=== PATIENT | female | born 1945 | race Caucasian/White ===

== ENCOUNTER 2019-05-15 04:26 | Inpatient (IN) ==
--- NOTE | 2019-05-10 17:47 | EKG Report ---
Test Performed on : 05/10/2019 5:22:59 PM Test Reason : PAT Blood Pressure : / mmHG Vent. Rate : 069 BPM Atrial Rate : 069 BPM P-R Int : 132 ms QRS Dur : 086 ms QT Int : 422 ms P-R-T Axes : 059 024 050 degrees QTc Int : 452 ms Normal sinus rhythm. Normal ECG When compared with ECG of 19-JUN-2013 16:54, No significant change was found U waves present, consider hypokalemia Confirmed by Jean-Claude SORIANO, Herb Nieves ([id number]) on 05/11/2019 8:31:15 AM
[2019-05-10 17:52] LABS: URINE SOURCE CLEAN CATCH
[2019-05-10 18:16] LABS: BASO# 0.05 X1000 (0.0-0.2); BASO% 0.5 % (0.0-0.8); EOS# 0.29 X1000 (0.0-0.7); EOS% 2.8 % (0.0-10.0); HEMATOCRIT 37.7 % (37.0-47.0); HEMOGLOBIN 11.7 g/dL (12.0-16.0); IMM GRAN# 0.05 X1000 (0.0-0.04); IMM GRAN% 0.5 % (0.0-0.5); LYMPH# 0.86 X1000 (1.2-3.4); LYMPH% 8.4 % (20.5-51.1); MCH 29.1 PG (27-31); MCV 93.8 FL (81-99); MONO% 6.8 % (1.7-9.3); MPV 10.4 FL (7.4-10.4); NEUT# 8.34 X1000 (1.4-6.5); PLT 217 X1000 (130-400); RBC 4.02 XMIL (4.2-5.4); RDW 16.3 % (11.5-14.5); WBC 10.29 X1000 (4.8-10.8)
[2019-05-10 18:17] LABS: HEMOGLOBIN A1C 5.6 % (4.8-6.0)
[2019-05-10 18:19] LABS: BILIRUBIN URINE NEGATIVE (NEGATIVE); BLOOD URINE NEGATIVE (NEGATIVE); COLOR YELLOW; GLUCOSE URINE NEGATIVE (NEGATIVE); KETONE URINE TRACE mg/dL (NEGATIVE); LEUKOCYTES URINE LARGE (NEGATIVE); NITRITE URINE NEGATIVE (NEGATIVE); PH URINE 5.5; PROTEIN URINE 50 mg/dL (NEGATIVE); SP GRAVITY URINE 1.035; TURBIDITY URINE HAZY (CLEAR); UROBILINOGEN URINE 3 mg/dL (NORMAL)
[2019-05-10 18:21] LABS: PROTIME 13.3 Seconds (11.0-16.0)
[2019-05-10 18:22] LABS: PTT 30.8 Seconds (22.3-41.8)
[2019-05-10 18:25] LABS: UR EPITHELIAL CELLS >10 /HPF (<10); URINE BACTERIA NEGATIVE /HPF; URINE WBC TNTC /HPF (<10)
[2019-05-10 18:26] LABS: ALBUMIN 4.4 g/dL (3.5-5.0); CALCIUM 9.2 mg/dL (8.8-10.2); POTASSIUM 3.5 mmol/L (3.5-5.1)
[2019-05-10 18:37] LABS: URINE CASTS NONE SEEN
[2019-05-15] MEDS ORDERED: OFIRMEV 1000 MG/ISOTONIC SOLN 1,000 MG/100 ML BOTTLE ONE (07:07)
[2019-05-15] MEDS ORDERED: DECADRON ONE ×2 (07:07→09:12)
[2019-05-15] MEDS ORDERED: DIPRIVAN 1% ONE ×2 (07:07→09:57)
[2019-05-15] MEDS ORDERED: ROBINUL ONE ×2 (07:07→09:06)
[2019-05-15] MEDS ORDERED: TORADOL ONE ×2 (07:07→07:48)
[2019-05-15] MEDS ORDERED: XYLOCAINE-MPF 2% ONE ×2 (07:07→09:58)
[2019-05-15] MEDS ORDERED: VERSED ONE (07:18)
[2019-05-15] MEDS ORDERED: COLACE ONE (07:19)
[2019-05-15] MEDS ORDERED: REGLAN ONE (07:19)
[2019-05-15] MEDS ORDERED: PEPCID ONE (07:19)
[2019-05-15] MEDS ORDERED: LYRICA ONE (07:20)
[2019-05-15] MEDS ORDERED: CELEBREX ONE (07:20)
[2019-05-15] MEDS ORDERED: VALIUM ONE (07:20)
[2019-05-15] MEDS ORDERED: LR 1,000 ML ONE (07:21)
[2019-05-15] MEDS ORDERED: VANCOMYCIN 1 GM/NS 1 GM/250 ML IVPB ONE (07:21)
[2019-05-15] MEDS ORDERED: FENTANYL ONE (07:22)
[2019-05-15] MEDS ORDERED: EXPAREL 1.3% ONE (07:48)
[2019-05-15] MEDS ORDERED: CYKLOKAPRON 1,000 MG/NS 1,000 MG/100 ML IVPB ONE (07:48)
[2019-05-15] MEDS ORDERED: DURAMORPH ONE (07:48)
[2019-05-15] MEDS ORDERED: SODIUM CHLORIDE 0.9% ONE (07:48)
[2019-05-15] MEDS ORDERED: MARCAINE 0.25% PF ONE (07:48)
[2019-05-15] MEDS ORDERED: NEOSPORIN G.U. IRRIGANT ONE (07:50)
[2019-05-15] MEDS ORDERED: EPHEDRINE ONE (09:57)
[2019-05-15 10:56] LABS: URINE SOURCE CATH
[2019-05-15 11:06] LABS: BILIRUBIN URINE NEGATIVE (NEGATIVE); BLOOD URINE NEGATIVE (NEGATIVE); COLOR YELLOW; GLUCOSE URINE NEGATIVE (NEGATIVE); KETONE URINE NEGATIVE (NEGATIVE); LEUKOCYTES URINE NEGATIVE (NEGATIVE); NITRITE URINE NEGATIVE (NEGATIVE); PROTEIN URINE NEGATIVE (NEGATIVE); SP GRAVITY URINE 1.012; TURBIDITY URINE CLEAR (CLEAR); UR EPITHELIAL CELLS <10 /HPF (<10); URINE BACTERIA NEGATIVE /HPF; URINE RBC <10 /HPF (<10); URINE WBC <10 /HPF (<10); UROBILINOGEN URINE NORMAL (NORMAL)
[2019-05-15] MEDS ORDERED: NS 1,000 ML ONE (11:49)
[2019-05-15] MEDS ORDERED: MORPHINE IV PRN ×3 (12:45)
[2019-05-15] MEDS ORDERED: OXY IR PO PRN (12:45)
[2019-05-15] MEDS ORDERED: MILK OF MAGNESIA PO PRN (12:45)
[2019-05-15] MEDS ORDERED: ZOFRAN IV PRN (12:45)
[2019-05-15] MEDS ORDERED: ZOFRAN ODT PO PRN (12:45)
[2019-05-15] MEDS: TYLENOL PO SCH ×2 (14:07→18:30)
[2019-05-15] MEDS: ULTRAM PO SCH ×2 (14:07→18:30)
[2019-05-15] MEDS: NS 1,000 ML IV SCH (14:07)
[2019-05-15] MEDS ORDERED: CYKLOKAPRON 1,000 MG in NS 100 ML IV ONE (15:15)
[2019-05-15] MEDS ORDERED: RESTORIL PO PRN (16:26)
--- NOTE | 2019-05-15 16:38 | OPERATIVE NOTE ---
PROCEDURE DATE: 05/15/2019 PREOPERATIVE DIAGNOSIS: Left hip degenerative joint disease. POSTOPERATIVE DIAGNOSIS: Left hip degenerative joint disease. PROCEDURE: Left anterior total hip arthroplasty using a [facility] size 11 high offset stem with a neutral neck length, 36 mm ceramic head, a 52 mm hemispherical shell with two 6.5 cancellous screws of 30 and 40 mm, and a 36 mm inside diameter acetabular liner. ANESTHESIA: Spinal. SURGEON: Aaron Pedraza MD PRODUCT SAFETY TESTER: DAYNE Perkins COMPLICATIONS: None. BLOOD LOSS: Minimal. DRAINS: Hemovac x1. DESCRIPTION OF PROCEDURE: Patient was brought to the operative suite and placed in the supine position. After successful administration of general anesthesia, the patient was placed on the OSI table in the usual position for left hip. The left hip was then prepped and draped in the usual sterile fashion. A longitudinal incision was made beginning 2.5 cm distal and 2.5 cm lateral to the anterior superior iliac spine, extended distally and slightly laterally 8 cm. This was dissected sharply through skin and subcutaneous tissue down to the tensor fascia. Tensor fascia was incised protecting the superficial cutaneous nerve and then dissected bluntly down to deep tensor fascia. The deep tensor fascia was incised and circumflex vessels electrocauterized exposing the anterior capsule. A T capsulotomy was performed exposing the anterior neck. The neck cut was then made with an oscillating saw. The femoral head was removed with the power corkscrew. The labrum was resected. The acetabulum was serially reamed to a 52 to accept a 52 cup. The 52 cup was then driven into place in the proper amount inclination and anteversion verified under fluoroscopy. Once it was properly seated, two 6.5 cancellous screws were placed a 40 mm superiorly and 30 mm posterior superiorly and a 36 mm inside diameter was locked onto the shell. Attention was then directed to the femur, it was externally rotated, adducted, and elevated out of the wound on the hook on the OSI bed. The lateral neck was rongeured. The canal was serially broached to a size 11. A size 11 high offset neutral neck length was trialed and found to be excellent leg length stability of the hip and offset. The trial was removed. Definitive stem was seated into the femur and then the ceramic head was seated on the Morin taper and the hip was again reduced. It was again found to be in excellent position, good fit and fill of the stem, good offset, and good leg length. The hip was copiously infiltrated with Exparel including posterior capsule, anterior capsule, intermuscular subcutaneous tissue. A drain was placed in deep tensor fascia and buried around the stem neck. The anterior capsule was repaired with 0 V-Loc. The tensor fascia was closed with 0 V-Loc after copiously irrigating the hip with normal saline containing irrigant and Vashe irrigation and then the skin edge approximated with 2-0 Vicryl, 4-0 Monocryl and a Prineo sterile dressing was applied. The patient tolerated the procedure well without complications. At the end of the procedure, all counts correct x2. The patient was transferred to the recovery room stable condition. cc: Aaron Pedraza MD
[2019-05-15] MEDS ORDERED: VANCOMYCIN 1 GM/NS 1 GM/250 ML IVPB IV ONE (20:30)
[2019-05-15] MEDS: WELLBUTRIN SR PO SCH (21:17)
[2019-05-15] MEDS: OXY IR PO PRN (21:17)
[2019-05-15] MEDS: LYRICA PO SCH (21:17)
[2019-05-15] MEDS: ICAR-C PO SCH (21:17)
[2019-05-15] MEDS: COLACE PO SCH (21:18)
[2019-05-15] MEDS: PERIDEX MT SCH (21:18)
[2019-05-16] MEDS: TYLENOL PO SCH ×3 (03:42→20:46)
[2019-05-16] MEDS: ULTRAM PO SCH ×3 (03:42→23:05)
[2019-05-16] MEDS: NS 1,000 ML IV SCH (03:43)
[2019-05-16 06:29] LABS: HEMATOCRIT 23.3 % (37.0-47.0); HEMOGLOBIN 7.1 g/dL (12.0-16.0)
[2019-05-16 06:45] LABS: AGAP 10; BUN 8 mg/dL (8-22); CALCIUM 8.4 mg/dL (8.8-10.2); CHLORIDE 109 mmol/L (98-107); COSMO 285; CREATININE 0.6 mg/dL (0.5-0.9); ESTIMATED GFR > 60; GLUCOSE 136 mg/dL (70-104); SODIUM 143 mmol/L (136-145); TCO2 24 mmol/L (25-35)
[2019-05-16] MEDS: OXY IR PO PRN ×3 (06:48→22:11)
[2019-05-16] MEDS: XARELTO PO SCH (06:48)
[2019-05-16] MEDS ORDERED: NS 500 ML IV ONE (08:02)
[2019-05-16] MEDS: PERIDEX MT SCH ×2 (12:24→20:47)
[2019-05-16] MEDS: PLAVIX PO SCH (12:24)
[2019-05-16] MEDS: LYRICA PO SCH ×2 (12:24→20:46)
[2019-05-16] MEDS: MOBIC PO SCH (12:25)
[2019-05-16] MEDS: NORVASC PO SCH (12:25)
[2019-05-16] MEDS: COLACE PO SCH ×2 (12:25→20:46)
[2019-05-16] MEDS: PEPCID PO SCH (12:25)
[2019-05-16] MEDS: ICAR-C PO SCH ×2 (12:25→20:46)
[2019-05-16] MEDS: WELLBUTRIN SR PO SCH ×2 (12:25→20:46)
[2019-05-16] MEDS: CORDARONE PO SCH (12:25)
[2019-05-16] MEDS: MICARDIS PO SCH (12:26)
--- NOTE | 2019-05-17 03:10 | DISCHARGE SUMMARY ---
ADMISSION DATE: 05/15/2019 DISCHARGE DATE: 05/16/2019 DISCHARGE DIAGNOSIS: Left hip degenerative joint disease status post left anterior total hip arthroplasty and acute blood loss anemia treated with transfusion of blood ischemia. DISCHARGE MEDICATIONS: See discharge medication list. DISPOSITION: The patient is discharged to home with home health physical therapy. Instructed to return for any signs or symptoms of infection or deep venous thrombosis. Instructed return to see Dr. Pedraza next . HOSPITAL COURSE: On the day of admission the patient underwent a left anterior total hip arthroplasty. Her postoperative course was unremarkable. At discharge she is afebrile, tolerating a regular diet, ambulating well with physical therapy. Her wound is clean, dry and intact without sign of infection. Her hematocrit was 23. We gave her 2 units of blood. She is discharged home in stable condition with instructions to follow up as described above. cc: Aaron Pedraza MD
[2019-05-17] MEDS: NS 1,000 ML IV SCH (05:09)
[2019-05-17] MEDS: TYLENOL PO SCH (05:10)
[2019-05-17] MEDS: ULTRAM PO SCH (05:10)
[2019-05-17] MEDS: XARELTO PO SCH (05:10)
[2019-05-17 06:43] LABS: HEMATOCRIT 30.1 % (37.0-47.0); HEMOGLOBIN 9.7 g/dL (12.0-16.0)
[2019-05-17] MEDS: PERIDEX MT SCH (09:24)
[2019-05-17] MEDS: PEPCID PO SCH (09:25)
[2019-05-17] MEDS: COLACE PO SCH (09:25)
[2019-05-17] MEDS: MOBIC PO SCH (09:25)
[2019-05-17] MEDS: NORVASC PO SCH (09:26)
[2019-05-17] MEDS: OXY IR PO PRN (09:26)
[2019-05-17] MEDS: ICAR-C PO SCH (09:26)
[2019-05-17] MEDS: CORDARONE PO SCH (09:26)
[2019-05-17] MEDS: WELLBUTRIN SR PO SCH (09:26)
[2019-05-17] MEDS: LYRICA PO SCH (09:26)
[2019-05-17] MEDS: PLAVIX PO SCH (09:26)
[2019-05-17] MEDS: MICARDIS PO SCH (09:27)
[2019-05-17 12:25] VITALS: BP 112/67
--- NOTE | 2019-05-18 06:14 | DISCHARGE SUMMARY ---
ADMISSION DATE: 05/15/2019 DISCHARGE DATE: 05/17/2019 ADDENDUM: Mrs. Sanchez was planned to be discharged on 05/16/2019. However, she had urinary retention last night and could not void and so they kept her in the hospital overnight for that with in and out catheters. Today, she ambulated well, but her O2 level was in the 70s when she was walking, and then was 82 at rest. Therefore, we are going to send her home on 2 L of O2 oxygen. I have arranged for that. She will follow up with her family physician Dr. Snyder. cc: MD Aaron Ferreira MD
== END 2019-05-17 14:40 | disposition home health service (06) | DRG 470 ==
LOC: SURHOLD 04:26 → 4N 08:53
PROVIDERS: ADMIT Orthopaedic Surgery; ATTEND Orthopaedic Surgery